=== PATIENT | female | born 1980 | race American Indian/Alaskan Native ===

== ENCOUNTER 2018-12-26 09:01 | Observation (INO) | payer OTHER ==
[2018-12-24 10:48] LABS: Basophils % (Auto) 0.6 % (0.0-1.8); Eosinophils # (Auto) 0.1 K/mm3 (0.0-0.4); Eosinophils % (Auto) 2.1 % (0.0-4.3); Hematocrit 35.1 % (30.3-42.9); Lymphocytes # (Auto) 1.8 K/mm3 (1.2-5.4); Lymphocytes % (Auto) 40.1 % (13.4-35.0); Mean Corpuscular HGB Conc 32 % (30-34); Mean Corpuscular Volume 75 fl (79-97); Monocytes # (Auto) 0.4 K/mm3 (0.0-0.8); Monocytes % (Auto) 10.1 % (0.0-7.3); Platelet Count 248 K/mm3 (140-440); Red Blood Count 4.67 M/mm3 (3.65-5.03)
--- NOTE | 2018-12-24 12:48 | Anesthesia Consultation ---
Anesthesia Consult and Med Hx Date of service: 12/24/18 - Airway Anesthetic Teeth Evaluation: Good ROM Head & Neck: Adequate Mental/Hyoid Distance: Adequate Mallampati Class: Class II Intubation Access Assessment: Good - Pulmonary Exam CTA: Yes - Cardiac Exam Cardiac Exam: RRR - Pre-Operative Health Status ASA Pre-Surgery Classification: ASA2 Proposed Anesthetic Plan: General Nerve Block: TAP - Pulmonary Hx Smoking: Yes (Former smoker) Hx Respiratory Symptoms: No SOB: No - Cardiovascular System Hx Cardia Arrhythmia: No - Central Nervous System Hx Neuromuscular Disorder: No Hx Psychiatric Problems: No - Gastrointestinal Hx Gastroesophageal Reflux Disease: No - Endocrine Hx Insulin Dependent Diabetes: No Hx Non-Insulin Dependent Diabetes: No - Hematic Hx Anemia: Yes - Other Systems Hx Alcohol Use: Yes (Occas) Hx Cancer: No Hx Obesity: Yes (BMI 37.4) - Additional Comments Anesthesia Medical History Comments: Former smoker 20 year hx, elevated BMI
[~2018-12-26 09:01] MED LIST: LACTATED RINGERS 1,000 ML IV SCH; NEURONTIN PO NR; SUBLIMAZE IV ONE; SUBLIMAZE IV PRN; VERSED IV NR
[2018-12-26] MEDS ORDERED: MARCAINE-EPI 0.25%-1:200,000 INFILTRATI ONE (09:21)
[2018-12-26] MEDS ORDERED: DECADRON ONE ×2 (09:21→09:54)
--- NOTE | 2018-12-26 09:29 | History and Physical Report ---
History of Present Illness Date of examination: 12/26/18 Date of admission: 12/26/2018 Chief complaint: Dysfunctional uterine bleeding History of present illness: 38-year-old with a history of dysfunctional uterine bleeding. The patient had undergone an endometrial ablation and sampling of the endometrium in July 2018 without significant improvement in her symptoms. She reported having heavy menses with passage of clots and discomfort during her cycle. The patient elected to undergo definitive surgical management. Past History Past Medical History: other (anemia) Past Surgical History: section, other (endometrial ablation) - Obstetrical History : 2 Para: 2 Hx # Term Pregnancies: 2 Number of Pregnancies: 0 Spontaneous Abortions: 0 Induced : 0 Number of Living Children: 2 Medications and Allergies Allergies Allergy/AdvReac Type Severity Reaction Status Date / Time No Known Allergies Allergy Verified 12/19/18 14:16 Home Medications Medication Instructions Recorded Confirmed Last Taken Type No Known Home Medications [No 12/20/18 12/20/18 Unknown History Reported Home Medications] Active Meds: Active Medications Celecoxib (Celebrex) 200 mg PO PREOP NR Stop: 12/26/18 23:59 Fentanyl (Sublimaze) 100 mcg IV ONCE PRN PRN Reason: sedation for nerve block Stop: 12/26/18 23:59 Gabapentin (Neurontin) 300 mg PO PREOP NR Stop: 12/26/18 23:59 Lactated Ringer's (Lactated Ringers) 1,000 mls @ 100 mls/hr IV DIRECT YANIRA Lactated Ringer's (Lactated Ringers) 1,000 mls @ 100 mls/hr IV DIRECT YANIRA Midazolam HCl (Versed) 2 mg IV PREOP NR Stop: 12/26/18 23:59 Review of Systems All systems: negative Genitourinary: vaginal bleeding, pelvic pain - Vital Signs Vital signs: Vital Signs Temp Pulse Resp BP Pulse Ox 98.2 F 74 18 146/95 98 12/24/18 10:30 12/24/18 10:30 12/24/18 10:30 12/24/18 10:30 12/24/18 10:30 Temp Pulse Resp BP Pulse Ox 98.1 F 83 16 138/94 99 12/26/18 09:15 12/26/18 09:15 12/26/18 09:15 12/26/18 09:15 12/26/18 09:15 - Physical Exam Breasts: Positive: deferred Cardiovascular: Regular rate Lungs: Positive: Clear to auscultation Abdomen: Positive: normal appearance Results Result Diagrams: 12/24/18 10:30 All other labs normal. Assessment and Plan - Patient Problems (1) DUB (dysfunctional uterine bleeding) Current Visit: No Status: Acute Plan to address problem: Will proceed with a robotic hysterectomy
[2018-12-26] MEDS ORDERED: SUBLIMAZE ONE ×2 (09:54→11:01)
[2018-12-26] MEDS ORDERED: ZOFRAN ONE (09:54)
[2018-12-26] MEDS ORDERED: DIPRIVAN 10 MG/ML IV ONE (09:54)
[2018-12-26] MEDS ORDERED: BLOXIVERZ ONE (09:54)
[2018-12-26] MEDS ORDERED: XYLOCAINE MPF 2% ONE (09:54)
[2018-12-26] MEDS ORDERED: ROBINUL ONE ×2 (09:54→11:57)
[2018-12-26] MEDS ORDERED: ZEMURON IV ONE (09:54)
[2018-12-26] MEDS ORDERED: ANCEF/STERILE WATER 2 GM/20 ML 2 GM/20 ML SYRINGE IV NR (10:00)
[2018-12-26] MEDS ORDERED: DILAUDID IV PRN (10:03)
--- NOTE | 2018-12-26 10:03 | Anesthesia Day of Surgery ---
Anesthesia Day of Surgery - Day of Surgery Patient Examined: Yes Patient H&P Reviewed: Yes Patient is NPO: Yes
[2018-12-26] MEDS ORDERED: NEOSPORIN GU IR ONE ×2 (10:11→11:25)
[2018-12-26] MEDS ORDERED: NACL 0.9% IR ONE ×2 (11:26)
--- NOTE | 2018-12-26 12:00 | Operative Report ---
Operative Report Operative Report: Date of surgery: 12/26/2018 Preoperative diagnoses: Dysfunctional uterine bleeding Postoperative diagnoses: Same as above Procedure: Robotic hysterectomy; bilateral salpingectomy Surgeon: Mar Miguel M.D. Oliver Filter Operator: Cony Wright Anesthesia: Gen. endotracheal anesthesia Estimated blood loss: 25ml Pathology: Uterus, cervix, bilateral tubes Indication: 38-year-old with a history of dysfunctional uterine bleeding. The patient had previously undergone endometrial ablation without improvement of her symptoms and elected to undergo definitive surgical management Procedure: The patient was taken to the operating room and given general endotracheal anesthesia without complication. She is prepped and draped in a normal sterile fashion. A bivalve speculum was placed in the patient's vagina and a single- tooth tenaculum placed on the anterior lip of the cervix. The uterus was s ounded with the uterine sound. A 2NDNATURE uterine manipulator was placed in the bivalve speculum was then removed. Attention was then turned to the patient's abdomen where a millimeter supra umbilical skin incision was then made. A Veress needle was placed and peritoneal entry was verified water-filled syringe. Insufflation of the peritoneal cavity was performed with CO2 gas. The 12 mm trocar was then placed under direct visualization. An additional 8 mm trocar was placed on the patient's left and right lateral side just opposite of the supraumbilical trocar. An additional 5 mm right lateral trocar was then placed as the accessory port. The patient was then placed in steep Trendelenburg. The da Melissa robot was then engaged. A fenestrated forcep was placed in arm 2 and a vessel sealer was placed in arm 1. The surgeon then transferred to the surgical console. General survey revealed normal size uterus with normal tubes and ovaries bilaterally. The mesosalpinx was then isolated on the right. The vessel sealer was used to coagulate the mesosalpinx which was then transected. The tube was transected from the ovary. The tubo-ovarian ligament was then coagulated and transected. The round ligament was then coagulated and transected also. The vesicouterine peritoneum was then entered from the patient's right side. The uterine vessels were then coagulated with the vessel sealer. The vessels were then transected . Attention was then turned to the patient's left side where the tubo-ovarian ligament and mesosalpinx were again isolated coagulated and transected. The vesical peritoneum was then entered from the left and joined in the midline. Peritoneum was reflected off of the lower uterine segment. Uterine vessels were then coagulated and then transected. The blood supply to the uterus was adequately contained, a posterior colpotomy was made. The V care ring was visualized. Posterior colpotomy was created with the monopolar scissors. The incision was continued circumferentially until anterior colpotomy was made. The cervix and uterus were amputated from the vaginal cuff. The uterus was then removed along with the tubes bilaterally through the vagina and a warm laparotomy sponge was placed and maintain the pneumoperitoneum. The vaginal cuff was then closed in a running fashion with V lock suture. Irrigation of the pelvis was performed. Hemoblast was applied to the incision. The supraumbilical 12 mm trocar site was closed with the Donavan Coffman device. The skin was then reapproximated with 4-0 Monocryl. The tissue was sent to pathology which included the cervix, tubes and uterus. The patient was then successfully extubated. She was then taken to the recovery room in stable condition. All sponge laps and needle counts were marquis ect x2.
[2018-12-26] MEDS ORDERED: IBUPROFEN PO PRN (12:03)
[2018-12-26] MEDS ORDERED: AMBIEN PO PRN (12:03)
[2018-12-26] MEDS ORDERED: TYLENOL PO PRN (12:03)
[2018-12-26] MEDS ORDERED: ZOFRAN IV PRN (12:03)
[2018-12-26] MEDS ORDERED: MORPHINE IV PRN (12:03)
[2018-12-26] MEDS ORDERED: D5LR 1,000 ML IV SCH (13:00)
[2018-12-26] MEDS: TORADOL IV SCH ×2 (13:03→20:19)
[2018-12-26] MEDS: PERCOCET 5/325 PO PRN (15:17)
[2018-12-27] MEDS: PERCOCET 5/325 PO PRN ×3 (00:17→12:45)
[2018-12-27] MEDS: TORADOL IV SCH (02:50)
[2018-12-27 03:39] LABS: Hematocrit 32.5 % (30.3-42.9); Hemoglobin 10.3 gm/dl (10.1-14.3)
--- NOTE | 2018-12-27 08:01 | Progress Note ---
Assessment and Plan - Patient Problems (1) DUB (dysfunctional uterine bleeding) Current Visit: No Status: Acute Plan to address problem: patient doing well discharge home Subjective - Subjective Date of service: 12/27/18 Interval history: Patient doing well. Surgery discussed and postop care. Tolerating clears Patient reports: appetite normal, voiding normally, pain well controlled Objective - Vital Signs Latest vital signs: Vital Signs Temp Pulse Resp BP BP Pulse Ox 12/27/18 05:36 98.0 F 102 H 18 108/68 100 12/27/18 01:40 97.9 F 101 H 18 132/83 94 12/27/18 00:27 98.6 F 97 H 18 126/85 95 12/26/18 21:03 97.9 F 106 H 22 144/88 92 12/26/18 16:31 98.1 F 101 H 18 143/92 98 12/26/18 14:07 98.0 F 86 18 138/77 100 12/26/18 13:35 14 12/26/18 13:30 98 F 86 16 138/77 96 12/26/18 13:20 14 12/26/18 13:03 12 12/26/18 13:00 82 13 127/76 96 12/26/18 12:45 78 14 122/77 100 12/26/18 12:29 78 18 128/70 96 12/26/18 12:25 80 16 123/69 99 12/26/18 12:19 96.8 F L 82 16 116/76 99 12/26/18 10:27 96 H 9 L 162/85 99 12/26/18 10:22 79 13 141/81 99 12/26/18 10:17 75 12 140/84 100 12/26/18 09:42 16 12/26/18 09:41 16 12/26/18 09:25 96.8 F L 82 14 127/76 96 12/26/18 09:15 98.1 F 83 16 138/94 99 Intake and Output 12/26/18 12/27/18 12/27/18 22:59 06:59 14:59 Intake Total 490 Output Total 1200 1900 Balance -1200 -1410 Intake: Oral 250 Intake, Free Water 240 Output: Urine 1200 1900 Indwelling Catheter 1200 1900 Other: Total, Intake Amount 250 Total, Output Amount 900 600 - Exam Abdomen: Present: normal appearance
--- NOTE | 2018-12-27 08:03 | Discharge Summary ---
Providers - Providers Date of Admission: 12/26/18 12:03 Date of discharge: 12/27/18 Attending physician: ELISEO CABRERA Primary care physician: BENEFITS DIRECTOR Hospitalization Reason for admission: other (Dysfunctional uterine bleeding) Procedure: other (Robotic hysterectomy) Discharge diagnosis: other (Dysfunctional uterine bleeding) Hospital course: Patient was admitted the day of surgery. See op note. Postop uneventful. Condition at discharge: Good Disposition: DC-[id number] TO HOME OR SELFCARE - Discharge Diagnoses (1) DUB (dysfunctional uterine bleeding) Status: Acute Plan - Discharge Medications Prescriptions: Ibuprofen [Motrin] 800 mg PO Q8HR PRN #60 tablet PRN Reason: Pain, Mild (1-3) oxyCODONE /ACETAMINOPHEN [Percocet 5/325] 1 tab PO Q6HR PRN #30 tablet PRN Reason: Pain - Provider Discharge Summary Activity: no sex for 6 weeks, no heavy lifting 4 weeks, no strenuous exercise Diet: routine Instructions: routine Additional instructions: [] Smoking cessation referral if applicable(refer to patient education folder f or contact #) [] Refer to [facility] Booklet Call your doctor immediately for: * Fever > 100.5 * Heavy vaginal bleeding ( >1 pad per hour) * Severe persistent headache * Shortness of breath * Reddened, hot, painful area to leg or breast * Drainage or odor from incision. * Keep incision clean and dry at all times and follow doctor's instructions regarding bathing/showering schedule followup in 4 weeks - Follow up plan
[2018-12-27 13:32] VITALS: BP 134/78
== END 2018-12-27 13:58 | disposition home or self-care (01) ==
LOC: OR 09:01 → OB 12:03
PROVIDERS: ADMIT Obstetrics & Gynecology; ATTEND Obstetrics & Gynecology
DX: N93.8 Other specified abnormal uterine and vaginal bleeding (principal)
CPT/HCPCS: 36415; 58552; 64450; 84703; 85014; 85018; 85025; 86850; 86900; 86901; 88307; 96374; 96375; 96376; A4217; G0378; J1100; J1885; J2250; J2405; J2704; J2710; J3010; J7120; J7121; S2900